=== PATIENT | male | born 1950 | race Caucasian/White ===

== ENCOUNTER 2017-01-22 08:30 | Day surgery (SDC) | payer MEDICARE ==
[~2017-01-22] VITALS: Ht 177.8 cm; Wt 77.0 kg
[2017-01-22] VITALS (8 sets, daily range): BP systolic 145–155; BP diastolic 90–95; PULSE 68–90; RESP 17–18; TEMP 97.9–98.7; O2SAT 97–99
[~2017-01-22 08:30] MED LIST: CAPT25TA2 PO; CARV12.5 PO; CLIN1CAP5 PO; DIGO0.12 PO; TRAM50 PO; ZOCO40TA PO
[2017-01-22] MEDS ORDERED: POVIDONE IODINE 5% (ANTISEPSIS KIT) 4 APPLICATIONS EACH NARE SCH (09:00)
[2017-01-22] MEDS ORDERED: NO Heparin, Lovenox, Coumadin at least 12 hours prior to procedure. PRN (09:00)
[2017-01-22] MEDS ORDERED: LORazepam 1 MG TAB SL SCH (09:00)
[2017-01-22] MEDS ORDERED: NS 1000 ML IV SCH (09:00)
[2017-01-22] MEDS ORDERED: MUPIROCIN 2% OINT 1 APPLIC/GM SYR NASAL SCH (09:00)
[2017-01-22] MEDS ORDERED: CHLORHEXIDINE GLUCONATE 2 % 1 PACK (2 CLOTHS) TOPICAL SCH (09:00)
[2017-01-22] MEDS ORDERED: Hold AM Insulin & AM Hypoglycemic medications in diabetic patients PRN (09:00)
[2017-01-22] MEDS ORDERED: ceFAZolin 2 GM PREMIX 50 ML IV SCH (09:00)
[2017-01-22] MEDS ORDERED: VANCOMYCIN 1000 MG/NS 250 ML IV SCH ×2 (09:00)
[2017-01-22] MEDS ORDERED: METOPROLOL TARTRATE 25 MG TAB PO PRN (10:00)
[2017-01-22] MEDS ORDERED: POVIDONE IODINE 5% (ANTISEPSIS KIT) 4 APPLICATIONS EACH NARE PRN (10:00)
[2017-01-22] MEDS ORDERED: INSULIN HUMAN REGULAR 1,000 UNITS/10 ML VIAL SQ PRN (10:00)
[2017-01-22] MEDS ORDERED: CHLORHEXIDINE GLUCONATE 2 % 1 PACK (2 CLOTHS) TOPICAL PRN (10:00)
[2017-01-22] MEDS ORDERED: LACTATED RINGER'S 1000 ML IV PRN (10:00)
[2017-01-22] MEDS ORDERED: SODIUM CHLORID 0.9% 500 ML IV PRN (10:00)
[2017-01-22 10:03] LABS: AUTOMATED NEUTROPHIL # 5.9 TH/MM3 (1.8-7.7); BASOPHIL # 0.1 TH/MM3 (0-0.2); BASOPHIL % 0.7 % (0.0-2.0); EOSINOPHIL # 0.4 TH/MM3 (0-0.4); EOSINOPHIL % 4.3 % (0.0-4.0); HEMO FLAGS DIFF FINAL; LYMPH % 24.8 % (9.0-44.0); LYMPHOCYTE # 2.3 TH/MM3 (1.0-4.8); MEAN CELL VOLUME 92.4 FL (80.0-100.0); MEAN CORPUSCULAR HEMOGLOBIN 32.4 PG (27.0-34.0); MEAN CORPUSCULAR HGB CONC 35.1 % (32.0-36.0); MONO % 6.6 % (0.0-8.0); NEUT % 63.6 % (16.0-70.0); PLATELET COUNT 104 TH/MM3 (150-450); RED BLOOD COUNT 4.54 MIL/MM3 (4.50-5.90); RED CELL DISTRIBUTION WIDTH 12.7 % (11.6-17.2); WHITE BLOOD COUNT 9.2 TH/MM3 (4.0-11.0)
[2017-01-22 10:15] LABS: APTT (PATIENT) 27.5 SEC (24.3-30.1); PROTHROMBIN TIME - PATIENT 11.5 SEC (9.8-11.6)
[2017-01-22] MEDS ORDERED: SIMV40TA PO (10:22)
[2017-01-22] MEDS ORDERED: PANT40TA3 PO (10:22)
[2017-01-22] MEDS ORDERED: DIGO0.12 PO (10:22)
[2017-01-22] MEDS ORDERED: ASPI1TAB69 PO (10:22)
[2017-01-22] MEDS ORDERED: SPIR25TA PO (10:22)
[2017-01-22] MEDS ORDERED: RAMI10CA PO (10:22)
[2017-01-22] MEDS ORDERED: CARV25TA PO (10:22)
[2017-01-22] MEDS ORDERED: LIDOCAINE HCL 2% 50 ML VIAL ONE (13:18)
[2017-01-22] MEDS ORDERED: VANCOMYCIN 500 MG VIAL ONE (13:18)
--- NOTE | 2017-01-22 13:55 | EKG ---
Date Performed: 01/22/2017 Time Performed: 09:47:02 PTAGE: 66 years EKG: Sinus rhythm . Inferior ST changes are nonspecific Borderline ECG Compared to prior tracing no significant change PREVIOUS TRACING : 03/08/2004 17.27 DOCTOR: Hernandez Mcdaniel Interpretating Date/Time 01/22/2017 13:51:52
[2017-01-22] MEDS ORDERED: ONDANSETRON HCL 4 MG/2 ML VIAL IV PRN (14:00)
[2017-01-22] MEDS ORDERED: TEMAZEPAM 15 MG CAP PO PRN (14:00)
[2017-01-22] MEDS ORDERED: ACETAMINOPHEN/CODEINE 300 MG/30 MG TAB PO PRN (14:00)
--- NOTE | 2017-01-22 14:17 | MA ---
cc: CHAITANYA SMITH M.D. DATE: 01/22/2017 PROCEDURE Electrophysiology study. INDICATION Mr. Rod is a 66-year-old gentleman with coronary artery disease, ejection fraction 40%, wide complex tachyarrhythmia and ___ episode of dizziness and near syncope referred for electrophysiology study and possible device insertion. The risks, the nature and the benefit of the procedure are clearly stated to him. The risks include pneumothorax, cardiac perforation, stroke and even . He understood and agreed to proceed. PROCEDURE After written informed consent was obtained, the patient was brought to the EP lab where he was prepped and draped in the usual sterile fashion. Conscious sedation was initiated and maintained throughout the procedure by anesthesiologist. Once sedation was verified, the right inguinal area was anesthetized with 2% Xylocaine. Using modified Seldinger technique, the right femoral vein was cannulated on four occasions, four guidewire were advanced. Over the wire 3, 5 and a 6-[place] were advanced. Then under fluoroscopic guidance through the 5 and 6-[place], four 5-[place] curved quadripolar electrophysiology catheters were advanced and placed around the His, upper right atrium, coronary sinus and right ventricular apex. Basic interval was measured and they were within normal limits. At this point atrial pacing protocol was performed. Atrial pacing protocol consists of incremental atrial pacing as well as program stimulation with 110 cycle length and up to one excess stimuli delivered. No tachyarrhythmia was induced. Then ventricular pacing protocol there was VA conduction, ventricular pacing protocol consists of incremental ventricular pacing as well as program stimulation with 110 cycle length and up to one excess stimuli delivered. During ventricular pacing protocol tachyarrhythmia of intracardiac characteristic of ventricular tachycardia was induced. The patient pace termination failed, we rescued the patient with 200 external joule. At that point procedure was complete. All catheters were removed. The patient is going to be kept on the table and a single chamber defibrillator will be implanted for sudden secondary prevention. No incident report. The patient tolerated the procedure. Blood loss was minimal. 1. Electrocardiogram. At baseline the patient was in sinus, postprocedure electrocardiogram was unchanged. 2. Basic interval. Base cycle length was around 875 milliseconds, AH at 44 and HV at 82 milliseconds. 3. Atrial pacing protocol. Wenckebach of the node was around 260 milliseconds. ERP of the node 600-180 milliseconds. No tachyarrhythmia was induced. 4. Ventricular pacing protocol. There was VA conduction. During ventricular pacing protocol ventricular tachycardia was induced. The patient was rescued by external 200 joules. CONCLUSION Positive electrophysiology study for ventricular tachyarrhythmia. COMMEND AND RECOMMENDATIONS The patient is going to be kept on the table and a single chamber defibrillator will be implanted for sudden secondary prevention. MD DANIEL Henson/MARIANO /1:32 PM /2:06 PM
[2017-01-22] MEDS: ACETAMINOPHEN/CODEINE 300 MG/30 MG TAB PO PRN (14:40)
--- NOTE | 2017-01-22 16:10 | RADRPT ---
EXAM DATE/TIME: 01/22/2017 14:53 [facility] COMPARISON: No previous studies available for comparison. INDICATIONS : Post ICD MEDICAL HISTORY : None. SURGICAL HISTORY : Pacemaker. ENCOUNTER: Initial ACUITY: 1 day PAIN SCORE: 5/10 LOCATION: Bilateral chest FINDINGS: A left subclavian pacer has its tip in the right heart. There is no pneumothorax. The heart is imer l. The pulmonary vascular pattern is normal. Right perihilar atelectasis is noted. Degenerative garo nges are noted throughout the thoracic spine. CONCLUSION: 1. Right perihilar atelectasis. 2. No pneumothorax status post placement of left subclavian pacemaker with its tip in the right heart . Ezequiel Knapp MD on January 22, 2017 at 16:03 Board Certified Radiologist. This report was verified electronically.
[2017-01-22] MEDS ORDERED: PROPOFOL 200 MG/20 ML AMP OTHER ONE (16:42)
--- NOTE | 2017-01-22 19:05 | PD.CARD ---
SINGLE CHAMBER DEFIB IMPLANT PROCEDURE DATE: Jan 22, 2017 NYHA Classification: Class II (Mild) Prevention: Secondary Single Chamber Defib Implant PROCEDURE: Single chamber defibrillator implantation and device testing. INDICATIONS: Mr. Rod is a 66 -year-old male hx of non occlusive coronary artery disease, with congestive heart failure, ejection fraction 40%, previous EF was 25%, dizziness, episodes of nonsustained ventricular tachy on holter, positive electrophysiology for ventricular tachycardia who undergo defibrillator implantation for sudden secondary prevention. The risks, the nature and the benefit of the procedure are clearly stated to him . Risks include pneumothorax, cardiac perforation, stroke and even . He understood and agreed to proceed. PROCEDURE: As written, informed consent was obtained prior to electrophysiology study, the patient was kept on the table where he was prepped and draped in the sterile fashion. Conscious sedation was initiated and maintained throughout the procedure by anesthesiologist. Once sedation was verified, the left infraclavicular area was anesthetized with 2% Xylocaine. Using modified Seldinger technique, the left subclavian vein was cannulated on one occasion and one guide wire was advanced. Then, using #11 blade scalpel, a 3-cm incision was made two fingerbreadths below left clavicle. This incision was then taken down to the deep fascial layer using Bovie cautery and blunt dissection. Into the inferomedial direction, a device pocket was dissected, then the wire was dissected into the pocket. A 2-0 Vicryl suture was placed around the wires to prevent bleeding. At this point, over the wire, the 8- Albanian dilator and introducer was advanced. As dilator and wire were removed, an active fixation right ventricular pacing, sensing and defibrillatory lead was advanced. After adequate pacing and sensing thresholds were obtained, the lead was secured in the pocket with #2 Ethibond suture. At that point, the pocket was copiously irrigated with antibiotic solution. The leads were connected to the generator and placed into the pocket. I did proceed with NIPS. Initial induction consisted of T-wave shock which induced ventricular fibrillation which was adequately detected and treated by the ICD generator, delivering a 20-joules defibrillatory shock converting the patient back into sinus rhythm. Shocking impedance was 76 ohms, charge time 3.9 seconds. At that point NIPS was complete. I did proceed with wound closure. The deep fascial layer was approximated with 2-0 Vicryl suture in a continuous fashion. The subcutaneous layer was approximated with 2-0 Vicryl suture in a continuous fashion. The subcuticular layer was approximated with 2-0 Vicryl suture in a continuous fashion. Dermabond adhesive was applied to the wound, followed by a sterile pressure dressing. There was no complication. The patient tolerated procedure. Blood loss minimal. 1. Implanted Hardware: The implanted defibrillator generator is a [employer], model number 006018, serial number [id number]. The right ventricular pacing, sensing and defibrillatory lead is a [employer] model number 115159, serial number [id number]. 2. Thresholds: The right ventricular pacing threshold in the bipolar mode was 0.8 volts at 0.4 milliseconds, lead impedance 450 ohms and R-wave at 6.6 mV. The right ventricular defibrillatory threshold less than 20 joules shocking, impedance 76 ohms, charge time 3.9 seconds. 3. Settings: The device set in VVI 40 defibrillatory portion for two zones, one zone for ventricular tachycardia between 160 and 240 beats per minute. Initial therapy consists of one burst of ATP, one ramp, 81%, 10 pulse, 10 millisecond decremental, followed by 20, then 30 and all subsequent shocks at 40 joules defibrillatory shock, the second zone for ventricular fibrillation above 240 beats per minute, first therapy at 30 and all subsequent shocks at 40 joules defibrillatory shock. CONCLUSIONS: Successful defibrillator implantation and device testing. COMMENT AND RECOMMENDATIONS: The patient will be transferred to the telemetry unit, will be observed and when stable can be discharged home. Cindy Gibbs MD Jan 22, 2017 19:05
[2017-01-22] MEDS: CARVEDILOL 12.5 MG TAB PO SCH (20:17)
[2017-01-22] MEDS: ceFAZolin 2 GM PREMIX 50 ML IV SCH (20:18)
[2017-01-22] MEDS ORDERED: PRAVASTATIN SOD 80 MG TAB PO SCH (21:00)
[2017-01-23] VITALS (11 sets, daily range): BP systolic 101–154; BP diastolic 69–86; PULSE 64–76; RESP 18; TEMP 98.6–98.7; O2SAT 96–98
[2017-01-23] MEDS: ACETAMINOPHEN/CODEINE 300 MG/30 MG TAB PO PRN ×2 (02:21→09:14)
[2017-01-23] MEDS: ceFAZolin 2 GM PREMIX 50 ML IV SCH (04:00)
[2017-01-23] MEDS ORDERED: PANTOPRAZOLE SOD 40 MG DELAYED RELEASE TAB PO SCH (09:00)
[2017-01-23] MEDS ORDERED: ASPIRIN EC 81 MG TABEC PO SCH (09:00)
[2017-01-23] MEDS ORDERED: SPIRONOLACTONE 25 MG TAB PO SCH (09:00)
[2017-01-23] MEDS ORDERED: RAMIPRIL 5 MG CAP PO SCH (09:00)
[2017-01-23] MEDS ORDERED: DIGOXIN 0.125 MG TAB PO SCH (09:00)
[2017-01-23] MEDS: CARVEDILOL 12.5 MG TAB PO SCH (09:13)
--- NOTE | 2017-01-23 09:25 | PD.CARD.PN ---
Subjective Subjective Remarks Doing well, no chest pain, no shortness of breath, up and ambulating No events on telemetry Objective Medications Current Medications Medications (Trade) Dose Ordered Sig/Last Route Start Time Stop Time Status Last Admin Miscellaneous Information Hold AM Insulin & ... UNSCH PRN .XX 01/22/17 09:00 01/26/17 08:59 Miscellaneous Information NO Heparin, Loven... UNSCH PRN .XX 01/22/17 09:00 01/26/17 08:59 Sodium Chloride 1,000 ml @ 30 mls/hr Q24H IV 01/22/17 09:00 01/22/17 09:00 Lactated Ringer's 1,000 ml @ 30 mls/hr Q24H PRN IV 01/22/17 10:00 01/25/17 09:59 Sodium Chloride 500 ml @ 30 mls/hr [id number] PRN IV 01/22/17 10:00 01/25/17 09:59 (Ancef 2 Gm Premix) 50 ml @ 100 mls/hr Q8H IV 01/22/17 20:00 01/23/17 12:29 01/23/17 04:00 (Restoril) 15 mg HS PRN PO 01/22/17 14:00 (Zofran Inj) 4 mg Q4H PRN IV 01/22/17 14:00 (Tylenol-Codeine #3) 1 tab Q4H PRN PO 01/22/17 14:00 01/22/17 20:18 (Tylenol-Codeine #3) 2 tab Q4H PRN PO 01/22/17 14:00 01/23/17 09:14 (Ecotrin Ec) 81 mg DAILY PO 01/23/17 09:00 01/23/17 09:12 (Coreg) 25 mg BID PO 01/22/17 21:00 01/23/17 09:13 (Lanoxin) 0.125 mg DAILY PO 01/23/17 09:00 01/23/17 09:14 (Protonix) 40 mg DAILY PO 01/23/17 09:00 01/23/17 09:14 (Aldactone) 25 mg DAILY PO 01/23/17 09:00 01/23/17 09:12 (Altace) 10 mg DAILY PO 01/23/17 09:00 01/23/17 09:13 (Pravachol) 80 mg HS PO 01/22/17 21:00 01/22/17 20:17 Vital Signs / I&O Vital Signs Date Time Temp Pulse Resp B/P Pulse Ox O2 Delivery O2 Flow Rate FiO2 01/23/17 06:00 74 01/23/17 05:00 72 01/23/17 04:00 98.7 74 18 154/86 98 01/23/17 04:00 74 01/23/17 03:00 76 01/23/17 02:00 71 01/23/17 01:00 72 01/23/17 00:00 74 01/23/17 00:00 98.7 74 18 101/69 98 01/22/17 23:00 72 01/22/17 22:00 72 01/22/17 21:00 72 01/22/17 20:00 72 01/22/17 20:00 98.7 90 18 145/90 97 01/22/17 19:00 71 01/22/17 18:43 73 01/22/17 18:13 97.9 68 17 151/90 97 01/22/17 10:05 98.0 78 18 155/95 99 I/O 01/22/17 01/22/17 01/22/17 01/23/17 01/23/17 01/23/17 07:00 15:00 23:00 07:00 15:00 23:00 Intake Total 240 ml 520 ml Output Total 1400 ml Balance 240 ml -880 ml Intake Oral 240 ml 420 ml IV Total 100 ml Output Urine Total 1400 ml Physical Exam GENERAL: NAD, AAOx3 SKIN: Warm and dry. HEAD: Atraumatic. Normocephalic. EYES: Pupils equal and round. No scleral icterus. No injection or drainage. ENT: No nasal bleeding or discharge. Mucous membranes pink and moist. NECK: Trachea midline. No JVD. CARDIOVASCULAR: Regular rate and rhythm. RESPIRATORY: No accessory muscle use. Clear to auscultation. Breath sounds equal bilaterally. GASTROINTESTINAL: Abdomen soft, non-tender, nondistended. Hepatic and splenic margins not palpable. MUSCULOSKELETAL: Extremities without clubbing, cyanosis, or edema. No obvious deformities. Left chest wall with minimal ecchymosis. Incision clean and dry NEUROLOGICAL: Awake and alert. No obvious cranial nerve deficits. Motor grossly within normal limits. Five out of 5 muscle strength in the arms and legs. Normal speech. PSYCHIATRIC: Appropriate mood and affect; insight and judgment normal. Assessment and Plan Problem List: (1) ICD (implantable cardioverter-defibrillator) in place (2) Wide-complex tachycardia Assessment and Plan 1) No events over night, plan discharge today 2) Interrogation without problem 3) Follow up for wound check with Christian Bowman DO Jan 23, 2017 09:25
--- NOTE | 2017-01-23 09:30 | HHI.DS ---
Discharge Summary Admission Date 01/22/17 Discharge Date: Jan 23, 2017 Admitting Diagnosis Wide Complex Tachycardia with cardiomyopathy s/p [employer] ICD (Model 358382, Serial [id number]) (1) Wide-complex tachycardia Diagnosis: Principal (2) ICD (implantable cardioverter-defibrillator) in place Diagnosis: Principal CBC/BMP: 01/22/17 0920 01/22/17 0920 Significant Findings Laboratory Tests Test 01/22/17 09:20 Platelet Count 104 TH/MM3 (150-450) Mean Platelet Volume 12.6 FL (7.0-11.0) Eosinophils (%) (Auto) 4.3 % (0.0-4.0) Random Glucose 115 MG/DL (74-106) Pt Condition on Discharge: Good Discharge Disposition: Discharge Home Discharge Instructions DIET: Follow Instructions for: Heart Healthy Diet Activities you can perform: See Additionl Instruction Additional Activity Instructio: No lifting your arm past 90 degrees. Leave tape for 24 hours. Do not remove Steri-strips until your wound check. No showers for 3 days. Christian Farias DO Jan 23, 2017 09:30
--- NOTE | 2017-01-23 20:38 | EKG ---
Date Performed: 01/23/2017 Time Performed: 07:28:46 PTAGE: 66 years EKG: Sinus rhythm Slight nonspecific intraventricular conduction delay Compared to previous tracing, ST changes have i mproved Clinical correlation needed Borderline ECG PREVIOUS TRACING : 01/22/2017 17.52 DOCTOR: Jame Fischer Interpretating Date/Time 01/23/2017 20:37:51
--- NOTE | 2017-01-23 20:38 | EKG ---
Date Performed: 01/22/2017 Time Performed: 17:52:56 PTAGE: 66 years EKG: Sinus rhythm . Nonspecific intraventricular conduction delay ST-T changes are nonspecific Compared to prior tracin g no significant change Abnormal ECG PREVIOUS TRACING : 01/22/2017 09.47 DOCTOR: Jame Fischer Interpretating Date/Time 01/23/2017 20:37:11
== END 2017-01-23 10:55 | disposition home or self-care (01) ==
LOC: HDIC 08:30 → HCAT 08:30 → HDIC 16:53 → HCAT 16:53 → HCIS 18:23 → HCAT 01-23 10:55
PROVIDERS: ATTEND Internal Medicine Interventional Cardiology
DX: I47.2 Ventricular tachycardia (principal); I42.9 Cardiomyopathy, unspecified; I25.10 Atherosclerotic heart disease of native coronary artery without angina pectoris; I10 Essential (primary) hypertension; F17.210 Nicotine dependence, cigarettes, uncomplicated; R06.02 Shortness of breath; G47.30 Sleep apnea, unspecified; Z79.82 Long term (current) use of aspirin
CPT/HCPCS: 00410; 33249; 71010; 80048; 85025; 85610; 85730; 86850; 86900; 86901; 92960; 93005; 93620; C1722; C1730; C1777; J0690; J3370; J7030; J7050